=== PATIENT | female | born 1970 | race Caucasian/White ===

== ENCOUNTER → 2020-02-04 12:05 | Outpatient (BNVA) | payer BC, SELFPAY | PROVIDERS: Family Provider Family Medicine; PCP Family Medicine; Referring Provider Family Medicine; Visit Provider Specialist | DX: G43.711 Chronic migraine without aura, intractable, with status migrainosus (principal) | CPT/HCPCS: 99204 ==

== ENCOUNTER 2020-02-15 06:55 | Outpatient (CLI) | payer BC, SELFPAY ==
--- NOTE | 2020-02-15 07:15 | MR_ITS ---
WS: [id number] MRI BRAIN WITHOUT CONTRAST HISTORY: G43.909 Migraine, unspecified, not intractable COMPARISON: None available. TECHNIQUE: Diffusion imaging, multiplanar T1, T2 and FLAIR imaging obtained. No evidence for acute infarct or hemorrhage. Rivas-white matter differentiation is normal. No remote or acute infarcts are volume loss. Ventricles and extra-axial spaces are normal. 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 Tonsils extend 4.2 mm below the foramen magnum. No Chiar i malformation. No obstruction. No signal abnormalities. Dural venous sinuses and point hope ira of Mccani demonstrate no abnormality on this unenhanced studies. Paranasal sinuses: Clear. Mastoid air cells: Normal. Calvarium and scalp: Intact. MR/MR head wo con* [id number] IMPRESSION: 1. Unremarkable noncontrast MRI brain. No signal abnormalities. 2. Minimal ectopia of the cerebellar tonsils.
== END 2020-02-15 06:56 | disposition home or self-care (01) ==
LOC: RADSHAW 06:57
PROVIDERS: PCP Family Medicine; Visit Provider Specialist
DX: G43.909 Migraine, unspecified, not intractable, without status migrainosus (principal); Q04.8 Other specified congenital malformations of brain
CPT/HCPCS: 70551

== ENCOUNTER → 2020-03-03 13:34 | Outpatient (BNVA) | payer BC, SELFPAY | PROVIDERS: PCP Family Medicine; Visit Provider Specialist | DX: G43.711 Chronic migraine without aura, intractable, with status migrainosus (principal); Z87.891 Personal history of nicotine dependence | CPT/HCPCS: 99214 ==

== ENCOUNTER → 2020-06-01 15:02 | Outpatient (BNVA) | payer BC, SELFPAY | PROVIDERS: PCP Family Medicine; Visit Provider Specialist | DX: G43.711 Chronic migraine without aura, intractable, with status migrainosus (principal); Z87.891 Personal history of nicotine dependence | CPT/HCPCS: 99213 ==

== ENCOUNTER 2021-09-07 14:04 | Outpatient (CLI) | payer OTHER, BC, SELFPAY ==
--- NOTE | 2021-09-07 14:13 | MM_ITS ---
WS: [id number] BILATERAL SCREENING 3D TOMOSYNTHESIS DIGITAL MAMMOGRAM WITH CAD HISTORY: SCREENING COMPARISON: 04/11/2018 and 11/24/2010 Bilateral CC and MLO views submitted. Computer aided detection analyzed. Breast composition: There are scattered areas of fibroglandular density. No suspicious masses, microc alcifications or architectural distortion. Benign scattered skin calcifications. MM/[place] [id number] IMPRESSION: BI-RADS: 2-Benign FOLLOW UP: 1 Year Follow-up
== END 2021-09-07 14:05 | disposition home or self-care (01) ==
LOC: RADSHAW 14:08
PROVIDERS: PCP Family Medicine; Visit Provider Family Medicine
DX: Z12.31 Encounter for screening mammogram for malignant neoplasm of breast (principal)
CPT/HCPCS: 77063; 77067

== ENCOUNTER 2023-01-08 12:28 | Emergency (ER) | payer BC, SELFPAY ==
[2023-01-08] VITALS (21 sets, daily range): BP systolic 140–141; BP diastolic 85; PULSE 62–81; RESP 10–27; TEMP 36.8; O2SAT 95–100; BMI 33.5
--- NOTE | 2023-01-08 12:39 | ECG_ITS ---
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 Measurements Intervals [place] Rate: 74 P: 62 [place]: 143 QRS: 25 QRSD: 73 T: 51 QT: 376 QTc: 418 Interpretive Statements SINUS RHYTHM No previous ECG available for comparison Electronically Signed On 01-08-2023 17:31:02 CDT by Figueroa Mcelroy M.D. [id number] f
--- NOTE | 2023-01-08 15:23 | W.ED.CHESTPA ---
Documented by User: Wellington Garcia DO 01/09/23 06:43 HPI - Chest Pain General: Chief Complaint: Chest Pain Stated Complaint: N/chest pain Time Seen by Provider: 01/08/23 14:48 Source: patient Mode of arrival: ambulatory History of Present Illness: 52-year-old female presents emergency room with complaint of intermittent palpitations for the last several weeks. She was seen at urgent care and had a Holter monitor ordered which she completed but has not yet seen the result of. She intermittently has what she describes as good and bad days occasional palpitations. She had more palpitations today she denies any sadi chest pain or shortness of breath with it. She has not noticed anything exacerbates or relieves it. No fever sweats or chills. In the past she has intermittently been on thyroid supplement but was ultimately taken off of it because it did not seem to be helping much and her TSH was not significantly abnormal. MD complaint: chest pain Onset (ago): minute(s) Onset: during rest Relieving factors: nothing Exacerbating factors: nothing Associated symptoms: Reports palpitations; Deny abdominal pain, diaphoresis, dyspnea, fever(s), leg edema, nausea, sense of impending doom, syncope or vomiting Review of Systems Const: Denies: fever(s), chills, fatigue, malaise or diaphoresis ENMT: Denies: throat pain, ear or mastoid pain, nasal discharge or nasal congestion Card: Reports: palpitations; Denies: chest pain, irregular heart rhythm, edema, swelling of feet/ankles or syncope Resp: Denies: dyspnea GI: Denies: abdominal pain, nausea or vomiting : Denies: flank pain, difficulty voiding, dysuria, urinary frequency or urinary urgency Skin/Breast: Denies: rash or pruritus PFSH ED PFSH: Family History Other Cancer Psychiatric illness Social History Smoking and tobacco status: former smoker Alcohol intake: current Alcohol intake frequency: holidays/special occasions only Substance/Drug Use: never Physical Exam Const: GENERAL APPEARANCE: cooperative and comfortable ORIENTATION/CONSCIOUSNESS: Yes awake, Yes oriented to person, Yes oriented to place and Yes oriented to time HENMT: COMMON NORMALS: normocephalic, atraumatic and hearing grossly normal bilaterally HEAD & SCALP: normocephalic and atraumatic Resp: COMMON NORMALS: normal respiratory effort, No retractions, No use of accessory muscles and clear to auscultation bilaterally AUSCULTATION: clear to auscultation bilaterally Cardio: COMMON NORMALS: regular rate, regular rhythm and No murmurs present (Cardio) RATE: regular rate RHYTHM: regular rhythm GI: COMMON NORMALS: Soft to palpation and No hepatosplenomegaly present AUSCULTATION: Yes normoactive bowel sounds PALPATION: Yes Soft to palpation, No Tenderness to palpation present (GI), No Guarding due to palpation present (GI) and Yes No hepatosplenomegaly present Extremity: COMMON NORMALS: normal to inspection, capillary refill normal, no clubbing, cyanosis or edema, no calf tenderness and no pedal edema Neuro: SENSORIUM/ORIENTATION: Yes oriented to person, Yes oriented to place and Yes oriented to time Skin: COMMON NORMALS: no rashes or lesions noted GENERAL SKIN EXAM: no rashes or lesions noted Course Vital Signs: Vital signs: Vital Signs Temperature 98.3 F 01/08/23 12:40 Pulse Rate 67 01/08/23 16:25 Respiratory Rate 15 01/08/23 16:25 Blood Pressure 140/85 01/08/23 16:25 Pulse Oximetry 100 01/08/23 16:25 MDM - Chest Pain Medical Decision Making Patient stable no symptoms at this time reviewed the chart it the Holter monitor report is not yet on the chart. Initial EKG shows no acute changes. Second troponin pending, TSH euthyroid. Care signed out to Dr. Sinclair at change of shift. See final notes for diagnosis and disposition. Patient presents for chest pain along with palpitations atypical in nature patient's blood work is normal troponins EKG is normal she is stable for discharge to follow-up with PCP and return if worsening Lab Data 01/08/23 15:12 01/08/23 15:12 Radiology Impressions Chest X-Ray 01/08/23 15:58 IMPRESSION: Unremarkable frontal portable chest x-ray. Laboratory Results WBC 14.0 10^3/uL (4.0-10.0) H 01/08/23 15:12 RBC 4.27 10^6/uL (4.1-5.3) 01/08/23 15:12 Hgb 13.7 g/dL (11.5-15.3) 01/08/23 15:12 Hct 40.2 % (37.0-47.0) 01/08/23 15:12 MCV 94.1 fl (81-99) 01/08/23 15:12 MCH 32.1 pg (28.0-34.0) 01/08/23 15:12 MCHC 34.1 g/dL (30.0-36.0) 01/08/23 15:12 RDW 12.8 % (12.1-15.1) 01/08/23 15:12 Plt Count 374 10^3/cmm (130-400) 01/08/23 15:12 MPV 9.9 fL (7.4-10.4) 01/08/23 15:12 Neut % (Auto) 73.4 % 01/08/23 15:12 Lymph % (Auto) 20.1 % 01/08/23 15:12 [place] % (Auto) 5.5 % 01/08/23 15:12 Eos % (Auto) 0.6 % 01/08/23 15:12 Baso % (Auto) 0.1 % 01/08/23 15:12 Neut # (Auto) 10.28 10^3/uL (1.8-7.7) H 01/08/23 15:12 Lymph # (Auto) 2.8 10^3/uL (0.8-4.8) 01/08/23 15:12 [place] # (Auto) 0.8 10^3/uL (0.2-0.9) 01/08/23 15:12 Eos # (Auto) 0.1 10^3/uL (0.0-0.8) 01/08/23 15:12 Baso # (Auto) 0.0 10^3/uL (0.0-0.1) 01/08/23 15:12 Nucleated RBC % (auto) 0 % 01/08/23 15:12 Nucleated RBCs # 0.0 /100WBC 01/08/23 15:12 Sodium 136 mmol/L (136-145) 01/08/23 15:12 Potassium 3.8 mmol/L (3.5-5.1) 01/08/23 15:12 Chloride 101 mmol/L (98-107) 01/08/23 15:12 Carbon Dioxide 24 mmol/L (22-29) 01/08/23 15:12 Anion Gap 14.8 (5-19) 01/08/23 15:12 BUN 7 mg/dL (6-20) 01/08/23 15:12 Creatinine 0.7 mg/dL (0.5-0.9) 01/08/23 15:12 GFR Calculation 87.9 mL/min (90-130) L 01/08/23 15:12 Glucose 82 mg/dL (65-115) 01/08/23 15:12 Calculated Osmolality 279 mOsm/kg (285-295) L 01/08/23 15:12 Calcium 9.1 mg/dL (8.5-10.5) 01/08/23 15:12 Total Bilirubin 0.3 mg/dL (0.15-1.2) 01/08/23 15:12 AST 20 U/L (0-32) 01/08/23 15:12 ALT 45 U/L (0-33) H 01/08/23 15:12 Alkaline Phosphatase 104 U/L (35-105) 01/08/23 15:12 Troponin T Baseline 10 ng/L (0-10) 01/08/23 15:12 Troponin T 120 Minute 6.68 ng/L (0-10) 01/08/23 18:11 Delta Troponin T -3.32 ABS# (0-10) L 01/08/23 18:11 Total Protein 6.8 g/dL (6.6-8.7) 01/08/23 15:12 Albumin 4.4 g/dL (3.5-5.2) 01/08/23 15:12 Globulin 2.4 g/dL (1.3-4.6) 01/08/23 15:12 TSH 1.92 uIU/mL (0.27-4.20) 01/08/23 15:12 Discharge Plan Discharge Patient Disposition: Home Clinical Impression: Chest pain, Palpitations Condition: Stable Prescriptions: No Action promethazine 25 mg tablet 25 mg PO Q6H PRN levothyroxine 75 mcg capsule 37.5 mcg PO DAILY venlafaxine [Effexor XR] 150 mg capsule,extended release 24hr 150 mg PO DAILY Qty: 90 3RF Rx Instructions: After the initial 7 days. Emgality Syringe 120 mg/mL syringe 240 mg SUBCUT ONCE Qty: 1 0RF Rx Instructions: 240 mg subcu once, then 120 mg monthly subc u Discharge Orders: Discharge ED (Routine); Ordered 01/08/23 Ordered By: Aayush Sinclair Referrals: Wilda Redman MD [Primary Care Provider] - 1-3 days Discharge Diet: Advance as tolerated Discharge Activity: Resume usual activity Patient Instructions: Chest Pain (ED) Coding Level of Care Code ED [employer] Supervisor for Chg Fwd Documented by User: Aayush Sinclair MD 01/08/23 18:57 HPI - Chest Pain General: Chief Complaint: Chest Pain Stated Complaint: N/chest pain Time Seen by Provider: 01/08/23 14:48 PFSH ED PFSH: Family History Other Cancer Psychiatric illness Social History Smoking and tobacco status: former smoker Alcohol intake: current Alcohol intake frequency: holidays/special occasions only Substance/Drug Use: never Course Vital Signs: Vital signs: Vital Signs Temperature 98.3 F 01/08/23 12:40 Pulse Rate 67 01/08/23 16:25 Respiratory Rate 15 01/08/23 16:25 Blood Pressure 140/85 01/08/23 16:25 Pulse Oximetry 100 01/08/23 16:25 MDM - Chest Pain Medical Decision Making Patient presents for chest pain along with palpitations atypical in nature patient's blood work is normal troponins EKG is normal she is stable for discharge to follow-up with PCP and return if worsening Medical Records I reviewed the patient's medical records. Lab Data I reviewed the patient's lab results. 01/08/23 15:12 01/08/23 15:12 Radiology Impressions Chest X-Ray 01/08/23 15:58 IMPRESSION: Unremarkable frontal portable chest x-ray. Laboratory Results WBC 14.0 10^3/uL (4.0-10.0) H 01/08/23 15:12 RBC 4.27 10^6/uL (4.1-5.3) 01/08/23 15:12 Hgb 13.7 g/dL (11.5-15.3) 01/08/23 15:12 Hct 40.2 % (37.0-47.0) 01/08/23 15:12 MCV 94.1 fl (81-99) 01/08/23 15:12 MCH 32.1 pg (28.0-34.0) 01/08/23 15:12 MCHC 34.1 g/dL (30.0-36.0) 01/08/23 15:12 RDW 12.8 % (12.1-15.1) 01/08/23 15:12 Plt Count 374 10^3/cmm (130-400) 01/08/23 15:12 MPV 9.9 fL (7.4-10.4) 01/08/23 15:12 Neut % (Auto) 73.4 % 01/08/23 15:12 Lymph % (Auto) 20.1 % 01/08/23 15:12 [place] % (Auto) 5.5 % 01/08/23 15:12 Eos % (Auto) 0.6 % 01/08/23 15:12 Baso % (Auto) 0.1 % 01/08/23 15:12 Neut # (Auto) 10.28 10^3/uL (1.8-7.7) H 01/08/23 15:12 Lymph # (Auto) 2.8 10^3/uL (0.8-4.8) 01/08/23 15:12 [place] # (Auto) 0.8 10^3/uL (0.2-0.9) 01/08/23 15:12 Eos # (Auto) 0.1 10^3/uL (0.0-0.8) 01/08/23 15:12 Baso # (Auto) 0.0 10^3/uL (0.0-0.1) 01/08/23 15:12 Nucleated RBC % (auto) 0 % 01/08/23 15:12 Nucleated RBCs # 0.0 /100WBC 01/08/23 15:12 Sodium 136 mmol/L (136-145) 01/08/23 15:12 Potassium 3.8 mmol/L (3.5-5.1) 01/08/23 15:12 Chloride 101 mmol/L (98-107) 01/08/23 15:12 Carbon Dioxide 24 mmol/L (22-29) 01/08/23 15:12 Anion Gap 14.8 (5-19) 01/08/23 15:12 BUN 7 mg/dL (6-20) 01/08/23 15:12 Creatinine 0.7 mg/dL (0.5-0.9) 01/08/23 15:12 GFR Calculation 87.9 mL/min (90-130) L 01/08/23 15:12 Glucose 82 mg/dL (65-115) 01/08/23 15:12 Calculated Osmolality 279 mOsm/kg (285-295) L 01/08/23 15:12 Calcium 9.1 mg/dL (8.5-10.5) 01/08/23 15:12 Total Bilirubin 0.3 mg/dL (0.15-1.2) 01/08/23 15:12 AST 20 U/L (0-32) 01/08/23 15:12 ALT 45 U/L (0-33) H 01/08/23 15:12 Alkaline Phosphatase 104 U/L (35-105) 01/08/23 15:12 Troponin T Baseline 10 ng/L (0-10) 01/08/23 15:12 Troponin T 120 Minute 6.68 ng/L (0-10) 01/08/23 18:11 Delta Troponin T -3.32 ABS# (0-10) L 01/08/23 18:11 Total Protein 6.8 g/dL (6.6-8.7) 01/08/23 15:12 Albumin 4.4 g/dL (3.5-5.2) 01/08/23 15:12 Globulin 2.4 g/dL (1.3-4.6) 01/08/23 15:12 TSH 1.92 uIU/mL (0.27-4.20) 01/08/23 15:12 Discharge Plan Discharge Patient Disposition: Home Clinical Impression: Chest pain, Palpitations Condition: Stable Prescriptions: No Action promethazine 25 mg tablet 25 mg PO Q6H PRN levothyroxine 75 mcg capsule 37.5 mcg PO DAILY venlafaxine [Effexor XR] 150 mg capsule,extended release 24hr 150 mg PO DAILY Qty: 90 3RF Rx Instructions: After the initial 7 days. Emgality Syringe 120 mg/mL syringe 240 mg SUBCUT ONCE Qty: 1 0RF Rx Instructions: 240 mg subcu once, then 120 mg monthly subc u Discharge Orders: Discharge ED (Routine); Ordered 01/08/23 Ordered By: Aayush Sinclair Referrals: Wilda Redman MD [Primary Care Provider] - 1-3 days Discharge Diet: Advance as tolerated Discharge Activity: Resume usual activity Patient Instructions: Chest Pain (ED) Coding Level of Care Code ED [employer] for Lucio Palmer
[2023-01-08 15:51] LABS: Troponin(5th) Baseline 10 ng/L (0-10)
--- NOTE | 2023-01-08 15:54 | ECG_ITS ---
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 Measurements Intervals [place] Rate: 64 P: 40 [place]: 140 QRS: 45 QRSD: 83 T: 46 QT: 405 QTc: 419 Interpretive Statements SINUS RHYTHM Compared to ECG 01/08/2023 12:39:51 No significant changes Electronically Signed On 01-08-2023 17:37:30 CDT by Figueroa Mcelroy M.D. [email or web address] [id number]
--- NOTE | 2023-01-08 15:58 | XR_ITS ---
WS: [id number] EXAMINATION: XR chest 1V portable [id number] REASON FOR EXAM: dyspnea/cough COMPARISON: 03/08/2018 ORDER DATE: 01/08/2023 4:06 PM TECHNIQUE: A single, portable frontal chest x-ray was obtained. X-RAY FINDINGS: The lungs are clear. Pleural spaces are clear. No pleural effusions or pneumothorax. Cardiomediastinal silhouette is normal. No evidence for pulmonary edema. Soft tissue and osseous structures are unremarkable. No tubes or lines are present. XR/XR chest 1V portable [id number] IMPRESSION: Unremarkable frontal portable chest x-ray.
[2023-01-08 16:08] LABS: Basophils % 0.1 %; Eosinophils # 0.1 10^3/uL (0.0-0.8); Eosinophils % 0.6 %; Hematocrit 40.2 % (37.0-47.0); Hemoglobin 13.7 g/dL (11.5-15.3); Lymphocytes # 2.8 10^3/uL (0.8-4.8); Lymphocytes % 20.1 %; Mean Corpuscular HGB Conc 34.1 g/dL (30.0-36.0); Mean Corpuscular Hemoglobin 32.1 pg (28.0-34.0); Mean Corpuscular Volume 94.1 fl (81-99); Mean Platelet Volume 9.9 fL (7.4-10.4); Monocytes # 0.8 10^3/uL (0.2-0.9); Monocytes % 5.5 %; Neutrophils # 10.28 10^3/uL (1.8-7.7); Neutrophils % 73.4 %; Nucleated Red Blood Cells % 0 %; Platelet Count 374 10^3/cmm (130-400); Red Blood Count 4.27 10^6/uL (4.1-5.3); Red Cell Distribution Width 12.8 % (12.1-15.1)
[2023-01-08 16:42] LABS: Alanine Aminotransferase 45 U/L (0-33); Albumin Level 4.4 g/dL (3.5-5.2); Alkaline Phosphatase 104 U/L (35-105); Anion Gap 14.8 (5-19); Aspartate Amino Transferase 20 U/L (0-32); Blood Urea Nitrogen 7 mg/dL (6-20); Calcium 9.1 mg/dL (8.5-10.5); Carbon Dioxide 24 mmol/L (22-29); Chloride 101 mmol/L (98-107); Globulin 2.4 g/dL (1.3-4.6); Glomerular Filtration Rate 87.9 mL/min (90-130); Glucose 82 mg/dL (65-115); Osmolality Calculated 279 mOsm/kg (285-295); Potassium 3.8 mmol/L (3.5-5.1); Sodium 136 mmol/L (136-145); Thyroid Stimulating Hormone 1.92 uIU/mL (0.27-4.20); Total Bilirubin 0.3 mg/dL (0.15-1.2); Total Protein 6.8 g/dL (6.6-8.7)
[2023-01-08 18:42] LABS: Troponin 5 2HR 6.68 ng/L (0-10)
[2023-01-08 19:17] LABS: Troponin 5 2HR Delta -3.32 ABS# (0-10)
== END 2023-01-08 19:14 | disposition home or self-care (01) ==
PROVIDERS: Family Medicine; Emergency Provider Emergency Medicine; PCP Family Medicine
DX: R07.9 Chest pain, unspecified (principal); R00.2 Palpitations; Z87.891 Personal history of nicotine dependence
CPT/HCPCS: 71045; 80053; 84443; 84484; 85025; 93005; 99285

== ENCOUNTER → 2024-03-29 10:54 | Outpatient (BNVA) | payer BC, SELFPAY | PROVIDERS: PCP Family Medicine | DX: R39.89 Other symptoms and signs involving the genitourinary system (principal) | CPT/HCPCS: 81000 ==

== ENCOUNTER → 2024-04-09 08:52 | Outpatient (BNVA) | payer BC, SELFPAY | PROVIDERS: PCP Family Medicine | DX: R68.89 Other general symptoms and signs (principal) | CPT/HCPCS: 87400; 87426 ==